=== PATIENT | female | born 1960 | race Asian ===

== ENCOUNTER 2018-06-21 11:51 | Emergency (ER) | payer SELFPAY ==
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
[2018-06-21 16:18] VITALS: BP 116/82; TEMP 97.2; O2SAT 96
== END 2018-06-21 16:15 | disposition home or self-care (01) ==
LOC: ER 11:51
DX: S42.102A Fracture of unspecified part of scapula, left shoulder, initial encounter for closed fracture (principal); S43.102A Unspecified dislocation of left acromioclavicular joint, initial encounter; S62.337A Displaced fracture of neck of fifth metacarpal bone, left hand, initial encounter for closed fracture; S00.93XA Contusion of unspecified part of head, initial encounter; M54.2 Cervicalgia; V47.6XXA Car passenger injured in collision with fixed or stationary object in traffic accident, initial encounter; Y92.410 Unspecified street and highway as the place of occurrence of the external cause